=== PATIENT | female | born 1995 | race Caucasian/White ===

== ENCOUNTER 2017-10-17 09:44 | Emergency (ER) | payer OTHER ==
[2017-10-17 10:01] VITALS: BP 104/66; PULSE 78; RESP 20; TEMP 98.8
[2017-10-17 10:04] VITALS: O2SAT 98
--- NOTE | 2017-10-17 10:50 | ED PDOC ---
HPI: CCC, URI, Sore Throat Time Seen by Provider: 10/17/17 10:31 Chief Complaint (Nursing): Fever Chief Complaint (Provider): Cough History Per: Patient History/Exam Limitations: no limitations Onset/Duration Of Symptoms: Days (2) Additional Complaint(s): Pt. with cough, congestion, runny nose, nasal congestion, body aches. No weakness. No dizziness, chest pain, fever, nausea, vomit, diarrhea. No back pain. No urinary complaints. No abd pain. Past Medical History Reviewed: Nursing Documentation, Vital Signs Vital Signs: Last Vital Signs Temp 98.8 F 10/17/17 10:00 Pulse 78 10/17/17 10:00 Resp 20 10/17/17 10:00 BP 104/66 10/17/17 10:00 Pulse Ox 98 10/17/17 10:01 - Medical History PMH: Asthma - Surgical History Surgical History: No Surg Hx - Family History Family History: States: Unknown Family Hx - Social History Alcohol: None Drugs: Denies - Home Medications Home Medications: Ambulatory Orders Medication Instructions Recorded Benzonatate [Tessalon Perles] 100 mg PO BID PRN 5 Days sgl 10/17/17 Ibuprofen [Motrin] 600 mg PO TID 7 Days tab 10/17/17 - Allergies Allergies/Adverse Reactions: Allergies Allergy/AdvReac Type Severity Reaction Status Date / Time No Known Allergies Allergy Verified 10/17/17 10:04 Review of Systems Constitutional: Negative for: Fever, Weakness ENT: Positive for: Nose Pain, Nose Discharge, Nose Congestion. Negative for: Throat Pain Cardiovascular: Negative for: Chest Pain Respiratory: Positive for: Cough. Negative for: Shortness of Breath Gastrointestinal: Negative for: Nausea, Vomiting, Abdominal Pain Musculoskeletal: Negative for: Shoulder Pain Skin: Negative for: Rash Neurological: Negative for: Weakness, Numbness, Confusion Physical Exam - Reviewed Nursing Documentation Reviewed: Yes Vital Signs Reviewed: Yes - Physical Exam Appears: Positive for: Non-toxic, No Acute Distress Head Exam: Positive for: ATRAUMATIC, NORMAL INSPECTION, NORMOCEPHALIC Skin: Positive for: Normal Color, Warm, DRY Eye Exam: Positive for: EOMI, Normal appearance, PERRL ENT: Positive for: Nasal Congestion. Negative for: Pharyngeal Erythema, Tonsillar Exudate Neck: Positive for: Normal, Painless ROM Cardiovascular/Chest: Positive for: Regular Rate, Rhythm. Negative for: Edema Respiratory: Positive for: Normal Breath Sounds. Negative for: Wheezing Gastrointestinal/Abdominal: Positive for: Normal Exam, Soft. Negative for: Tenderness Back: Positive for: Normal Inspection. Negative for: L CVA Tenderness, R CVA Tenderness Extremity: Positive for: Normal ROM. Negative for: Tenderness, Pedal Edema Neurologic/Psych: Positive for: Alert, Oriented - ECG O2 Sat by Pulse Oximetry: 98 Pulse Ox Interpretation: Normal - Progress ED Course And Treament: 1054: Stable. AAOx3. Tolerated PO. Fu with pcp. Likely URI. Disposition - Clinical Impression Clinical Impression: URI (upper respiratory infection) - Patient ED Disposition Is Patient to be Admitted: No Counseled Patient/Family Regarding: Diagnosis, Need For Followup, Rx Given - Disposition Referrals: [facility] [Outside] - 10/18/17 Disposition: Routine/Home Disposition Time: 10:55 Condition: STABLE Additional Instructions: Return if not better in 3 days. Prescriptions: Benzonatate [Tessalon Perles] 100 mg PO BID PRN 5 Days sgl PRN Reason: Cough Ibuprofen [Motrin] 600 mg PO TID 7 Days tab Instructions: Viral Upper Respiratory Infection, Adult (DC) Forms: [facility] ED School/Work Excuse, [facility] (Uzbek)
== END 2017-10-17 11:57 | disposition home or self-care (01) ==
LOC: H.ER 09:44
DX: J06.9 Acute upper respiratory infection, unspecified (principal)

== ENCOUNTER 2017-12-20 08:38 | Emergency (ER) | payer OTHER ==
[2017-12-20 08:53] VITALS: RESP 18; TEMP 99.9
--- NOTE | 2017-12-20 09:55 | ED PDOC ---
HPI: Female Pain Time Seen by Provider: 12/20/17 09:07 Chief Complaint (Nursing): Female Genitourinary Chief Complaint (Provider): Female Genitourinary History Per: Patient History/Exam Limitations: no limitations Onset/Duration Of Symptoms: Hrs Current Symptoms Are (Timing): Still Present Additional Complaint(s): 22 y/o female with a PMHx of presents to the ED for evaluation of vaginal spotting today. Patient states she took an at home test that resulted positive. Patient reports vaginal spotting is associated with lower abdominal pain. PMD: Dr. Torres Abnormal Vaginal Bleeding: Yes Last Menstral Period: 11/13/2017 : 1 Para: 0 Past Medical History Reviewed: Historical Data, Nursing Documentation, Vital Signs Vital Signs: Last Vital Signs Temp 99.9 F H 12/20/17 08:49 Pulse 86 12/20/17 08:49 Resp 18 12/20/17 08:49 BP 130/79 12/20/17 08:49 Pulse Ox 99 12/20/17 08:49 - Medical History PMH: Asthma - Surgical History Surgical History: No Surg Hx - Family History Family History: States: Unknown Family Hx - Home Medications Home Medications: Ambulatory Orders Medication Instructions Recorded Benzonatate [Tessalon Perles] 100 mg PO BID PRN 5 Days sgl 10/17/17 Ibuprofen [Motrin] 600 mg PO TID 7 Days tab 10/17/17 - Allergies Allergies/Adverse Reactions: Allergies Allergy/AdvReac Type Severity Reaction Status Date / Time No Known Allergies Allergy Verified 10/17/17 10:04 Review of Systems ROS Statement: Except As Marked, All Systems Reviewed And Found Negative Gastrointestinal: Positive for: Abdominal Pain (lower) Genitourinary Female: Positive for: Vaginal Bleeding (Spotting) Physical Exam - Reviewed Nursing Documentation Reviewed: Yes Vital Signs Reviewed: Yes - Physical Exam Appears: Positive for: Non-toxic, No Acute Distress Head Exam: Positive for: ATRAUMATIC, NORMOCEPHALIC Skin: Positive for: Normal Color, Warm, Dry Eye Exam: Positive for: Normal appearance, EOMI, PERRL ENT: Positive for: Normal ENT Inspection Neck: Positive for: Normal, Painless ROM Cardiovascular/Chest: Positive for: Regular Rate, Rhythm. Negative for: Murmur Respiratory: Positive for: Normal Breath Sounds. Negative for: Respiratory Distress Gastrointestinal/Abdominal: Positive for: Normal Exam, Soft. Negative for: Tenderness Back: Positive for: Normal Inspection. Negative for: L CVA Tenderness, R CVA Tenderness, Vertebral Tenderness Extremity: Positive for: Normal ROM. Negative for: Pedal Edema, Deformity Neurologic/Psych: Positive for: Alert, Oriented. Negative for: Motor/Sensory Deficits - Laboratory Results Result Diagrams: 12/20/17 09:50 12/20/17 09:50 - ECG O2 Sat by Pulse Oximetry: 99 (RA) Pulse Ox Interpretation: Normal Medical Decision Making Medical Decision Making: Time: 944 Plan: -- ABO/RH Type -- Type and Screen -- Beta-HCG, Quantitative -- ED Urine -- ED Urine Dipstick -- CBC with differentials -- Urinalysis -- OB Preg 1st Tri & OB Transvag US Time: 1117 US RESULTS FINDINGS: UTERUS: Measures 8.2 x 5 point by 3.9 cm. Normal in size and appearance. No fibroid or other mass lesion seen. ENDOMETRIUM: Measures twelve mm in diameter. The central endometrial echo complex is normal in appearance. No evidence of intrauterine gestation. CERVIX: No cervical abnormality identified. RIGHT OVARY: Measures 3.5 x 3.3 x 1.5 cm. No solid mass. Normal flow. There is a 2.9 x 2.8 x 2.4 cm paraovarian anechoic mass without central or peripheral vascularity. LEFT OVARY: Measures 3.3 x 2.5 x 2.2 cm. No solid mass. Normal flow. FREE FLUID: There is small amount of free fluid in the cul de sac. OTHER FINDINGS: None. IMPRESSION: No evidence of intrauterine gestation. 2.9 cm right paraovarian cystic mass may represent a simple cyst. Ectopic cannot be entirely excluded with the stated clinical history. Clinical follow-up, correlation with serial beta HCG levels and ultrasound examination is recommended. Scribe Attestation: Documented by Shama Manning acting as a scribe for Dr. Donna Tinajero MD. Provider Scribe Attestation: All medical record entries made by the Scribe were at my direction and personally dictated by me. I have reviewed the chart and agree that the record accurately reflects my personal performance of the history, physical exam, medical decision making, and the department course for this patient. I have also personally directed, reviewed, and agree with the discharge instructions and disposition. Disposition - Clinical Impression Clinical Impression: Vaginal bleeding - Disposition Referrals: Asuncion Polanco MD [Family Provider] - Disposition: Routine/Home Disposition Time: 12:20 Condition: STABLE Instructions: Heavy Periods Forms: [facility] (Telugu)
[2017-12-20 10:12] LABS: BASO % 0.5 % (0.0-2.0); EOS # 0.1 K/uL (0.0-0.7); EOS % 1.1 % (0.0-4.0); LYMPH # 2.2 K/uL (1.0-4.3); LYMPH % 28.6 % (20.0-40.0); MEAN CELL VOLUME 86.7 fl (81.0-99.0); MEAN CORPUSCULAR HGB CONC 33.4 g/dL (33.0-37.0); MEAN PLATELET VOLUME 9.1 fl (7.2-11.7); MONO # 0.4 K/uL (0.0-0.8); MONO % 5.6 % (0.0-10.0); NEUT # 4.8 K/uL (1.8-7.0); NEUT % 64.2 % (50.0-75.0); NRBC % 0.1 % (0.0-0.0); RBC 4.49 Mil/uL (3.80-5.20); RED CELL DISTRIBUTION WIDTH 13.5 % (11.5-14.5); WHITE BLOOD COUNT 7.5 K/uL (4.8-10.8)
[2017-12-20 10:13] LABS: SQUAMOUS EPITHIAL 1 /hpf (0-5); URINE BACTERIA RARE (<OCC); URINE BILIRUBIN NEGATIVE (NEGATIVE); URINE BLOOD LARGE (NEGATIVE); URINE CLARITY CLEAR (Clear); URINE GLUCOSE (UA) NEG (Normal); URINE LEUKOCYTE ESTERASE NEG Leu/uL (Negative); URINE PROTEIN NEGATIVE (NEGATIVE); URINE UROBILINOGEN 0.2-1.0 mg/dL (0.2-1.0)
[2017-12-20 10:26] LABS: ALB/GLOB RATIO 1.4 (1.0-2.1); ALT/SGPT 39 U/L (9-52); AST/SGOT 28 U/L (14-36); BLOOD UREA NITROGEN 8 mg/dl (7-17); CALCIUM 9.1 mg/dL (8.4-10.2); GFR AFRICAN-AMERICAN > 60; GFR NON-AFRICAN AMERICAN > 60
[2017-12-20 11:28] LABS: URINE COLOR LIGHT YELLOW (YELLOW)
--- NOTE | 2017-12-20 11:50 | US ---
Date of service: 12/20/2017 HISTORY: Vaginal spotting COMPARISON: None available. TECHNIQUE: Transabdominal and transvaginal pelvic ultrasound was performed. FINDINGS: UTERUS: Measures 8.2 x 5 point by 3.9 cm. Normal in size and appearance. No fibroid or other mass lesion seen. ENDOMETRIUM: Measures twelve mm in diameter. The central endometrial echo complex is normal in appearance. No evidence of intrauterine gestation. CERVIX: No cervical abnormality identified. RIGHT OVARY: Measures 3.5 x 3.3 x 1.5 cm. No solid mass. Normal flow. There is a 2.9 x 2.8 x 2.4 cm paraovarian anechoic mass without central or peripheral vascularity. LEFT OVARY: Measures 3.3 x 2.5 x 2.2 cm. No solid mass. Normal flow. FREE FLUID: There is small amount of free fluid in the cul de sac. OTHER FINDINGS: None. IMPRESSION: No evidence of intrauterine gestation. 2.9 cm right paraovarian cystic mass may represent a simple cyst. Ectopic cannot be entirely excluded with the stated clinical history. Clinical follow-up, correlation with serial beta HCG levels and ultrasound examination is recommended.
[2017-12-20 12:45] VITALS: BP 125/79; PULSE 70
[2017-12-20 17:33] VITALS: O2SAT 99
== END 2017-12-20 12:45 | disposition home or self-care (01) ==
LOC: H.ER 08:38
DX: N93.9 Abnormal uterine and vaginal bleeding, unspecified (principal); N83.291 Other ovarian cyst, right side